=== PATIENT | male | born 1955 | race Caucasian/White ===

== ENCOUNTER → 2020-11-27 | Outpatient (CLI) | payer MEDICARE, MEDICAID ==
--- NOTE | 2020-11-27 17:02 | Diagnostic Imaging Report ---
CLINICAL INDICATION: Patient with back pain and sciatica. Patient had scoliosis several years ago but has had no treatment. EXAM: X-ray of the lumbar spine, 3 views. COMPARISON: None. FINDINGS: There is at least 28 degrees of dextroscoliosis of the lumbar spine which is centered at the L2-L3 level. There is question if the L2 and L3 vertebrae are fused with decreased left side infusion. Comparison to prior imaging or CT scan would better evaluate. 1: There is no acute fracture. There are degenerative spurs throughout the lumbar spine. Sacroiliac joints show no significant abnormality. IMPRESSION: 1: There is dextroscoliosis of the lumbar spine. 2: There is questionable fusion and bony deformity of the L2 and L3 vertebrae. CT scan of the lumbar spine would better evaluate. 3: There is multilevel lumbar spine degenerative disease. Dictated by: Dictated on workstation # [id number]
== END ==
LOC: RAD FS 15:33
PROVIDERS: ATTEND Nurse Practitioner Family
DX: M47.816 Spondylosis without myelopathy or radiculopathy, lumbar region (principal); M41.86 Other forms of scoliosis, lumbar region
CPT/HCPCS: 72100

== ENCOUNTER → 2020-12-16 | Outpatient (CLI) | payer MEDICARE, MEDICAID ==
--- NOTE | 2020-12-16 17:27 | Diagnostic Imaging Report ---
PROCEDURE: CT lumbar spine without contrast. TECHNIQUE: Multiple contiguous axial images were obtained through the lumbar spine without the use of intravenous contrast. Sagittal and coronal reformations were then performed. Auto Exposure Controls were utilized during the CT exam to meet ALARA standards for radiation dose reduction. INDICATION: Chronic low back pain, scoliosis. COMPARISON: 11/27/2020. FINDINGS: Moderate right convexity lumbar scoliosis is present. 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 There is degenerative disc disease at L2-L3 with facet and ligamentum flavum hypertrophy. No obvious foraminal or central canal stenosis is identified. The SI joints are symmetric. There is no paraspinous mass or osseous lesion. IMPRESSION: 1. 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 No foraminal or central canal stenosis identified. 2. No traumatic malalignment or fracture. Dictated by: Dictated on workstation # [id number]
== END ==
LOC: RAD FS 14:59
PROVIDERS: ATTEND Nurse Practitioner Family
DX: M41.86 Other forms of scoliosis, lumbar region (principal)
CPT/HCPCS: 72131